=== PATIENT | male | born 1990 | race Hispanic/Latino ===

== ENCOUNTER → 2023-11-16 | Emergency (ER) | payer BC ==
[~2023-11-16] VITALS: Ht 170.2 cm; Wt 106.6 kg
[2023-11-16 14:06] VITALS: BP 136/76; PULSE 95; RESP 14
== END ==
LOC: EDH 14:00
DX: R07.89 Other chest pain (principal); Z53.21 Procedure and treatment not carried out due to patient leaving prior to being seen by health care provider
CPT/HCPCS: 93005